=== PATIENT | female | born 1970 | race African-American/Black ===

== ENCOUNTER 2017-03-13 12:05 | Emergency (ER) | payer BC ==
[~2017-03-13 12:05] MED LIST: AUGMENTIN PO; PHENERGAN W/CO120 ML PO; ZITHROMAX PO
== END 2017-03-13 12:59 | disposition home or self-care (01) ==
LOC: CFTX 12:05
DX: R59.0 Localized enlarged lymph nodes (principal); J02.9 Acute pharyngitis, unspecified; I10 Essential (primary) hypertension
CPT/HCPCS: 87651; 99283